=== PATIENT | male | born 1985 | race African-American/Black ===

== ENCOUNTER 2016-11-28 19:13 | Emergency (ER) | payer OTHER ==
[~2016-11-28] VITALS: Ht 185.4 cm; Wt 90.7 kg
[2016-11-28 19:21] VITALS: BP 128/75
== END 2016-11-28 19:57 | disposition home or self-care (01) ==
LOC: ER 19:17
DX: G43.909 Migraine, unspecified, not intractable, without status migrainosus (principal); F17.200 Nicotine dependence, unspecified, uncomplicated; Z91.02 Food additives allergy status
CPT/HCPCS: 99283; A4606; Z7610

== ENCOUNTER 2018-08-11 18:03 | Emergency (ER) | payer OTHER ==
[~2018-08-11] VITALS: Ht 185.4 cm; Wt 86.2 kg
[2018-08-11 18:03] VITALS: BP 143/79
== END 2018-08-11 20:59 | disposition home or self-care (01) ==
LOC: ER 18:06
DX: S29.011A Strain of muscle and tendon of front wall of thorax, initial encounter (principal); J31.0 Chronic rhinitis; G43.909 Migraine, unspecified, not intractable, without status migrainosus; F12.90 Cannabis use, unspecified, uncomplicated; X50.0XXA Overexertion from strenuous movement or load, initial encounter; Y93.89 Activity, other specified; Y92.89 Other specified places as the place of occurrence of the external cause; Y99.8 Other external cause status
CPT/HCPCS: 71045; 99283; A4606

== ENCOUNTER 2018-11-08 16:12 | Emergency (ER) ==
[~2018-11-08] VITALS: Ht 185.4 cm; Wt 88.5 kg
--- NOTE | 2018-11-08 16:46 | NUR ---
PT WALKED INTO EMERGENCY ROOM FOR C/C CHILLS, COUGHING OUT BLOOD LAST NIGHT, "I THINK I HAVE PNEUMONIA." WILL CONTINUE TO MONITOR
[2018-11-08 18:16] VITALS: BP 128/82
--- NOTE | 2018-11-08 18:17 | NUR ---
PT DISCHARGED HOME GIVEN ACI WILL F/U WITH PCP.
== END 2018-11-08 18:16 | disposition home or self-care (01) ==
LOC: ER 16:12
DX: R05 Cough (principal); F12.90 Cannabis use, unspecified, uncomplicated; G43.909 Migraine, unspecified, not intractable, without status migrainosus
CPT/HCPCS: 71045-TC

== ENCOUNTER 2018-11-16 17:52 | Emergency (ER) | payer OTHER ==
[~2018-11-16] VITALS: Ht 185.4 cm; Wt 86.2 kg
[2018-11-16 18:00] VITALS: BP 132/78
== END 2018-11-16 18:36 | disposition home or self-care (01) ==
LOC: ER 17:54
DX: J31.0 Chronic rhinitis (principal); G43.909 Migraine, unspecified, not intractable, without status migrainosus; F12.90 Cannabis use, unspecified, uncomplicated